=== PATIENT | male | born 1965 | race Caucasian/White ===

== ENCOUNTER 2022-02-02 05:28 | Emergency (ER) | payer BC, SELFPAY ==
[2022-02-02] VITALS (8 sets, daily range): BP systolic 122–145; BP diastolic 70–90; PULSE 66–82; RESP 13–20; O2SAT 90–95; BMI 40.9
--- NOTE | 2022-02-02 06:17 | ED.GENADULT ---
HPI - General Adult General Time Seen by Provider: 06:17 <Fletcher Charles MD - Last Filed: 02/12/22 16:04> Date Seen: 02/02/22 <Fletcher Charles MD - Last Filed: 02/12/22 16:04> Chief complaint: Dizziness/Vertigo <Fletcher Charles MD - Last Filed: 02/12/22 16:04> Stated complaint: Dizziness/Light headedness <Fletcher Charles MD - Last Filed: 02/12/22 16:04> Time Seen by Provider: 02/02/22 06:13 <Fletcher Charles MD - Last Filed: 02/12/22 16:04> Source: patient, family and RN notes reviewed <Fletcher Charles MD - Last Filed: 02/12/22 16:04> Mode of arrival: ambulatory <Fletcher Charles MD - Last Filed: 02/12/22 16:04> Limitations: no limitations <Fletcher Charles MD - Last Filed: 02/12/22 16:04> History of Present Illness HPI narrative: 56-year-old male with no known past medical history presents today with episodes of lightheadedness. Yesterday when he was walking he noticed a couple episodes of feeling lightheaded, these lasted a couple minutes and felt better when he sat down and rested. He had a couple episodes this morning as well. No associated headache, vision changes, chest pain, palpitations, or shortness of breath. He took some nausea but no vomiting. In the emergency department when patient is coming from the waiting room he had another episode and he became pale and diaphoretic. He denies recent illness, no smoking. <Flecther Charles MD - Last Filed: 02/12/22 16:04> Related Data Home medications: Previous Rx's Medication Instructions Recorded meclizine 25 mg tablet 25 mg PO QID #20 tabs 02/02/22 <Fletcher Charles MD - Last Filed: 02/12/22 16:04> Allergies/adverse reactions: Allergies Allergy/AdvReac Type Severity Reaction Status Date / Time No Known Drug Allergies Allergy Verified 02/02/22 06:52 <Fletcher Charles MD - Last Filed: 02/12/22 16:04> Review of Systems Status of ROS: Reports: 10 or more systems reviewed and unremarkable except as noted in History and below <Fletcher Charles MD - Last Filed: 02/12/22 16:04> [facility] Medical History: Medical History (Updated 02/02/22 @ 07:56 by Fletcher Charles MD) Carpal tunnel syndrome Closed fracture of toe <Fletcher Charles MD - Last Filed: 02/12/22 16:04> Social History: Social History Smoking Status: Never smoker Do you use any of these nicotine containing products: None Second hand tobacco smoke exposure: No How often do you have a drink containing alcohol: never How often do you have six or more drinks on one occasion: Never AUDIT-C Alcohol total score: 0 Non-prescribed substance use: denies use <Fletcher Charles MD - Last Filed: 02/12/22 16:04> Exam Narrative: Exam Narrative: General: Well-developed and well-nourished, no acute distress Head: Atraumatic and normocephalic Eyes: Pupils are equal reactive, extraocular motions intact, conjunctiva clear ENT: External nose and ears are normal, posterior pharynx without erythema or exudate Neck: No midline cervical tenderness, full spontaneous range of motion the neck, trachea midline, no adenopathy Heart: Regular rate and rhythm no murmurs or thrills Lungs: Clear to auscultation bilaterally without wheezes or crackles Abdomen: Soft, nontender, nondistended with active bowel sounds Musculoskeletal: No tenderness, deformity, or edema Neurologic: Awake, alert, and oriented x3, no gross focal neurologic deficits, cranial nerves intact as tested Psych: Mood and affect are appropriate Skin: No rashes <Fletcher Charles MD - Last Filed: 02/12/22 16:04> Const: Vital Signs, click to edit/add: Vital Signs - 24 hr 02/02/22 06:20 02/02/22 06:30 02/02/22 08:04 Pulse Rate [Pulse Oximeter] 75 Pulse Rate [Right Pulse Oximeter] 82 Pulse Rate [orthos tatic lying Right Pulse Oximeter] 76 Respiratory Rate 16 Blood Pressure [Le ft Upper Arm] 129/77 Blood Pressure [or thostatic lying Le ft Arm] 131/81 145/86 H Blood Pressure [or thostatic standing Left Arm] 137/83 136/90 H Pulse Oximetry 95 Oxygen Delivery Me thod Room Air 02/02/22 06:25 02/02/22 06:30 02/02/22 06:40 Pulse Rate [Pulse Oximeter] 73 69 72 Pulse Rate [Right Pulse Oximeter] Pulse Rate [orthos tatic lying Right Pulse Oximeter] Respiratory Rate 16 18 13 Blood Pressure [Le ft Upper Arm] 131/81 137/83 123/70 Blood Pressure [or thostatic lying Le ft Arm] Blood Pressure [or thostatic standing Left Arm] Pulse Oximetry 91 93 90 Oxygen Delivery Me thod Room Air Room Air Room Air 02/02/22 07:00 Pulse Rate [Pulse Oximeter] 74 Pulse Rate [Right Pulse Oximeter] Pulse Rate [orthos tatic lying Right Pulse Oximeter] Respiratory Rate 20 Blood Pressure [Le ft Upper Arm] 122/72 Blood Pressure [or thostatic lying Le ft Arm] Blood Pressure [or thostatic standing Left Arm] Pulse Oximetry 92 Oxygen Delivery Me thod Room Air <Fletcher Charles MD - Last Filed: 02/12/22 16:04> Vital Signs, click to edit/add: Vital Signs - 24 hr 02/02/22 06:20 02/02/22 06:30 02/02/22 08:04 Pulse Rate [Pulse Oximeter] 75 Pulse Rate [Right Pulse Oximeter] 82 Pulse Rate [orthos tatic lying Right Pulse Oximeter] 76 Respiratory Rate 16 Blood Pressure [Le ft Upper Arm] 129/77 Blood Pressure [or thostatic lying Le ft Arm] 131/81 145/86 H Blood Pressure [or thostatic standing Left Arm] 137/83 136/90 H Pulse Oximetry 95 Oxygen Delivery Me thod Room Air 02/02/22 06:25 02/02/22 06:30 02/02/22 06:40 Pulse Rate [Pulse Oximeter] 73 69 72 Pulse Rate [Right Pulse Oximeter] Pulse Rate [orthos tatic lying Right Pulse Oximeter] Respiratory Rate 16 18 13 Blood Pressure [Le ft Upper Arm] 131/81 137/83 123/70 Blood Pressure [or thostatic lying Le ft Arm] Blood Pressure [or thostatic standing Left Arm] Pulse Oximetry 91 93 90 Oxygen Delivery Me thod Room Air Room Air Room Air 02/02/22 07:00 Pulse Rate [Pulse Oximeter] 74 Pulse Rate [Right Pulse Oximeter] Pulse Rate [orthos tatic lying Right Pulse Oximeter] Respiratory Rate 20 Blood Pressure [Le ft Upper Arm] 122/72 Blood Pressure [or thostatic lying Le ft Arm] Blood Pressure [or thostatic standing Left Arm] Pulse Oximetry 92 Oxygen Delivery Me thod Room Air <Ronald Fernández MD - Last Filed: 02/02/22 09:46> Course Course Hospital Course: Patient seen and examined, prior records reviewed. Differential diagnosis includes but not limited to dehydration, electrolyte disturbance, dysrhythmia, anemia, influenza, COVID. Patient presents with several near syncopal episodes occurring with activity. No associated symptoms with these, did become pale and diaphoretic with 1 of these episodes in the emergency department. EKG is reassuring, labs and x-ray are ordered. <Fletcher Charles MD - Last Filed: 02/12/22 16:04> Vital Signs Vital signs: Initial Vital Signs Temperature Source Temporal Artery Scan 02/02/22 06:20 Pulse Rate 75 02/02/22 06:20 Pulse Rhythm 02/02/22 06:20 Respiratory Rate 16 02/02/22 06:20 Blood Pressure 129/77 02/02/22 06:20 Blood Pressure Mean 94 02/02/22 06:20 Blood Pressure Position Supine 02/02/22 06:20 Pulse Oximetry 95 02/02/22 06:20 Oxygen Delivery Method 02/02/22 06:20 Vital Signs Pulse Rate 75 02/02/22 06:20 Respiratory Rate 16 02/02/22 06:20 Blood Pressure 129/77 02/02/22 06:20 Pulse Oximetry 95 02/02/22 06:20 Oxygen Delivery Method 02/02/22 06:20 Pulse Rate 66 02/02/22 09:00 Respiratory Rate 16 02/02/22 09:00 Blood Pressure 132/83 02/02/22 09:00 Pulse Oximetry 94 02/02/22 09:00 Oxygen Delivery Method 02/02/22 09:00 <Fletcher Charles MD - Last Filed: 02/12/22 16:04> Initial Vital Signs Temperature Source Temporal Artery Scan 02/02/22 06:20 Pulse Rate 75 02/02/22 06:20 Pulse Rhythm 02/02/22 06:20 Respiratory Rate 16 02/02/22 06:20 Blood Pressure 129/77 02/02/22 06:20 Blood Pressure Mean 94 02/02/22 06:20 Blood Pressure Position Supine 02/02/22 06:20 Pulse Oximetry 95 02/02/22 06:20 Oxygen Delivery Method 02/02/22 06:20 Vital Signs Pulse Rate 75 02/02/22 06:20 Respiratory Rate 16 02/02/22 06:20 Blood Pressure 129/77 02/02/22 06:20 Pulse Oximetry 95 02/02/22 06:20 Oxygen Delivery Method 02/02/22 06:20 Pulse Rate 66 02/02/22 09:00 Respiratory Rate 16 02/02/22 09:00 Blood Pressure 132/83 02/02/22 09:00 Pulse Oximetry 94 02/02/22 09:00 Oxygen Delivery Method 02/02/22 09:00 <Ronald Fernández MD - Last Filed: 02/02/22 09:46> Medical Decision Making MDM Narrative Medical decision making narrative: Care for this patient was transferred to pa at the end of Dr. Charles's shift. Lab results had returned with reassuring findings. A repeat troponin test returns again at 0. IA evaluated the patient at approximately 9 40 a.m.. He states that he is feeling normal and has been up to the bathroom without any incident. He is describing some vertigo symptoms related to these episodes. He is not showing any suspicion for cardiac cause for his symptoms but I did recommend a follow-up stress test. He may also use meclizine or Dramamine as needed and directed. At the time of discharge the patient appears safe for outpatient management. The treatment plan is reviewed along with written and verbal return precautions. Reasons to return and the importance of close followup were also reviewed. <Ronald Fernández MD - Last Filed: 02/02/22 09:46> Medical Records Medical records reviewed: Yes I reviewed the patient's medical records <Fletcher Charles MD - Last Filed: 02/12/22 16:04> Lab Data Lab results reviewed: Yes I reviewed the patient's lab results <Fletcher Charles MD - Last Filed: 02/12/22 16:04> Labs: Lab Results 11/28/22 11/28/22 11/28/22 Range/Units 06:30 06:30 06:35 WBC 5.36 (4.50-11.00) K/uL RBC 5.11 (4.30-5.90) m/uL Hgb 16.1 (13.5-17.5) gm/dL Hct 46.8 (37.0-53.0) % MCV 92 (80-100) fL MCH 32 (26-34) pg MCHC 34 (32-36) gm/dL RDW Coeff of Marjorie 12.5 (11.5-15.5) % Plt Count 169 (140-440) K/uL Neut % (Auto) 73.6 H (42.0-72.0) % Lymph % (Auto) 18.3 L (20-44) % [place] % (Auto) 5.2 (0.0-11.0) % Eos % (Auto) 2.1 (0.0-7.0) % Baso % (Auto) 0.6 (0.0-3.0) % Neut # (Auto) 3.90 (1.7-7.0) K/uL Lymph # (Auto) 1.00 (0.90-2.90) K/uL [place] # (Auto) 0.30 (0.00-0.90) K/UL Eos # (Auto) 0.11 (0.00-0.50) K/uL Baso # (Auto) 0.03 (0.00-0.30) K/uL Abs Immat Gran (auto) 0.01 (0.00-0.30) K/uL Imm/Tot Granulo (auto) 0.2 % Sodium 141 (135-149) mmol/L Potassium 4.3 (3.6-5.1) mmol/L Chloride 109 (96-114) mmol/L Carbon Dioxide 26 (20-32) mmol/L BUN 19 (7-30) mg/dL Creatinine 0.5 (0.5-1.5) mg/dL Estimated Creat Clear 170.33 Estimated GFR 120 ml/min Glucose 133 H (60-115) mg/dL Calcium 9.0 (8.4-10.6) mg/dL NT-Pro-B Natriuret Pep 27 (0-125) PG/mL Urine Color (Yellow) Urine Appearance (Clear) Urine pH (5.0-8.5) Ur Specific Butler (1.000-1.030) Urine Protein (Negative) Urine Glucose (UA) (Negative) Urine Ketones (Negative) Urine Blood (Negative) Urine Nitrite (Negative) Urine Bilirubin (Negative) Urine Urobilinogen (0.2-1.0) Ur Leukocyte Esterase (Negative) Urine RBC (0-2) Urine WBC (0-5) Ur Squamous Epith Cells (None-Few) Urine Bacteria (None) SARS-CoV-2 (PCR) Negative SARS-CoV-2 (Negative) Influenza Type A (PCR) Negative PCR FLU A (Negative) Influenza Type B (PCR) Negative PCR FLU B (Negative) RSV (PCR) Negative PCR RSV (Negative) POC Troponin I (0.01-0.04) ng/ml 02/02/22 02/02/22 02/02/22 Range/Units 06:40 07:55 09:00 WBC (4.50-11.00) K/uL RBC (4.30-5.90) m/uL Hgb (13.5-17.5) gm/dL Hct (37.0-53.0) % MCV (80-100) fL MCH (26-34) pg MCHC (32-36) gm/dL RDW Coeff of Marjorie (11.5-15.5) % Plt Count (140-440) K/uL Neut % (Auto) (42.0-72.0) % Lymph % (Auto) (20-44) % [place] % (Auto) (0.0-11.0) % Eos % (Auto) (0.0-7.0) % Baso % (Auto) (0.0-3.0) % Neut # (Auto) (1.7-7.0) K/uL Lymph # (Auto) (0.90-2.90) K/uL [place] # (Auto) (0.00-0.90) K/UL Eos # (Auto) (0.00-0.50) K/uL Baso # (Auto) (0.00-0.30) K/uL Abs Immat Gran (auto) (0.00-0.30) K/uL Imm/Tot Granulo (auto) % Sodium (135-149) mmol/L Potassium (3.6-5.1) mmol/L Chloride (96-114) mmol/L Carbon Dioxide (20-32) mmol/L BUN (7-30) mg/dL Creatinine (0.5-1.5) mg/dL Estimated Creat Clear Estimated GFR ml/min Glucose (60-115) mg/dL Calcium (8.4-10.6) mg/dL NT-Pro-B Natriuret Pep (0-125) PG/mL Urine Color Yellow (Yellow) Urine Appearance Clear (Clear) Urine pH 6.0 (5.0-8.5) Ur Specific [place] >= 1.030 (1.000-1.030) Urine Protein Negative (Negative) Urine Glucose (UA) Negative (Negative) Urine Ketones Negative (Negative) Urine Blood Trace-intact A (Negative) Urine Nitrite Negative (Negative) Urine Bilirubin Negative (Negative) Urine Urobilinogen 0.2 (0.2-1.0) Ur Leukocyte Esterase Negative (Negative) Urine RBC 0-2 (0-2) Urine WBC 0-2 (0-5) Ur Squamous Epith Cells None (None-Few) Urine Bacteria None (None) SARS-CoV-2 (PCR) (Negative) Influenza Type A (PCR) (Negative) Influenza Type B (PCR) (Negative) RSV (PCR) (Negative) POC Troponin I 0.00 L 0.00 L (0.01-0.04) ng/ml <Fletcher Charles MD - Last Filed: 02/12/22 16:04> Lab Results 02/02/22 02/02/22 02/02/22 Range/Units 06:30 06:30 06:35 WBC 5.36 (4.50-11.00) K/uL RBC 5.11 (4.30-5.90) m/uL Hgb 16.1 (13.5-17.5) gm/dL Hct 46.8 (37.0-53.0) % MCV 92 (80-100) fL MCH 32 (26-34) pg MCHC 34 (32-36) gm/dL RDW Coeff of Marjorie 12.5 (11.5-15.5) % Plt Count 169 (140-440) K/uL Neut % (Auto) 73.6 H (42.0-72.0) % Lymph % (Auto) 18.3 L (20-44) % [place] % (Auto) 5.2 (0.0-11.0) % Eos % (Auto) 2.1 (0.0-7.0) % Baso % (Auto) 0.6 (0.0-3.0) % Neut # (Auto) 3.90 (1.7-7.0) K/uL Lymph # (Auto) 1.00 (0.90-2.90) K/uL [place] # (Auto) 0.30 (0.00-0.90) K/UL Eos # (Auto) 0.11 (0.00-0.50) K/uL Baso # (Auto) 0.03 (0.00-0.30) K/uL Abs Immat Gran (auto) 0.01 (0.00-0.30) K/uL Imm/Tot Granulo (auto) 0.2 % Sodium 141 (135-149) mmol/L Potassium 4.3 (3.6-5.1) mmol/L Chloride 109 (96-114) mmol/L Carbon Dioxide 26 (20-32) mmol/L BUN 19 (7-30) mg/dL Creatinine 0.5 (0.5-1.5) mg/dL Estimated Creat Clear 170.33 Estimated GFR 120 ml/min Glucose 133 H (60-115) mg/dL Calcium 9.0 (8.4-10.6) mg/dL NT-Pro-B Natriuret Pep 27 (0-125) PG/mL Urine Color (Yellow) Urine Appearance (Clear) Urine pH (5.0-8.5) Ur Specific [place] (1.000-1.030) Urine Protein (Negative) Urine Glucose (UA) (Negative) Urine Ketones (Negative) Urine Blood (Negative) Urine Nitrite (Negative) Urine Bilirubin (Negative) Urine Urobilinogen (0.2-1.0) Ur Leukocyte Esterase (Negative) Urine RBC (0-2) Urine WBC (0-5) Ur Squamous Epith Cells (None-Few) Urine Bacteria (None) SARS-CoV-2 (PCR) Negative SARS-CoV-2 (Negative) Influenza Type A (PCR) Negative PCR FLU A (Negative) Influenza Type B (PCR) Negative PCR FLU B (Negative) RSV (PCR) Negative PCR RSV (Negative) POC Troponin I (0.01-0.04) ng/ml 02/02/22 02/02/22 02/02/22 Range/Units 06:40 07:55 09:00 WBC (4.50-11.00) K/uL RBC (4.30-5.90) m/uL Hgb (13.5-17.5) gm/dL Hct (37.0-53.0) % MCV (80-100) fL MCH (26-34) pg MCHC (32-36) gm/dL RDW Coeff of Marjorie (11.5-15.5) % Plt Count (140-440) K/uL Neut % (Auto) (42.0-72.0) % Lymph % (Auto) (20-44) % [place] % (Auto) (0.0-11.0) % Eos % (Auto) (0.0-7.0) % Baso % (Auto) (0.0-3.0) % Neut # (Auto) (1.7-7.0) K/uL Lymph # (Auto) (0.90-2.90) K/uL [place] # (Auto) (0.00-0.90) K/UL Eos # (Auto) (0.00-0.50) K/uL Baso # (Auto) (0.00-0.30) K/uL Abs Immat Gran (auto) (0.00-0.30) K/uL Imm/Tot Granulo (auto) % Sodium (135-149) mmol/L Potassium (3.6-5.1) mmol/L Chloride (96-114) mmol/L Carbon Dioxide (20-32) mmol/L BUN (7-30) mg/dL Creatinine (0.5-1.5) mg/dL Estimated Creat Clear Estimated GFR ml/min Glucose (60-115) mg/dL Calcium (8.4-10.6) mg/dL NT-Pro-B Natriuret Pep (0-125) PG/mL Urine Color Yellow (Yellow) Urine Appearance Clear (Clear) Urine pH 6.0 (5.0-8.5) Ur Specific [place] >= 1.030 (1.000-1.030) Urine Protein Negative (Negative) Urine Glucose (UA) Negative (Negative) Urine Ketones Negative (Negative) Urine Blood Trace-intact A (Negative) Urine Nitrite Negative (Negative) Urine Bilirubin Negative (Negative) Urine Urobilinogen 0.2 (0.2-1.0) Ur Leukocyte Esterase Negative (Negative) Urine RBC 0-2 (0-2) Urine WBC 0-2 (0-5) Ur Squamous Epith Cells None (None-Few) Urine Bacteria None (None) SARS-CoV-2 (PCR) (Negative) Influenza Type A (PCR) (Negative) Influenza Type B (PCR) (Negative) RSV (PCR) (Negative) POC Troponin I 0.00 L 0.00 L (0.01-0.04) ng/ml <Ronald Fernández MD - Last Filed: 02/02/22 09:46> ECG Data Attestation: I personally reviewed and interpreted this ECG as follows: <Fletcher Charles MD - Last Filed: 02/12/22 16:04> Prior ECG tracings: not available for review <Fletcher Charles MD - Last Filed: 02/12/22 16:04> Interpretation: Performed at 6:15 a.m. demonstrates sinus rhythm with left ventricular hypertrophy, rate 70, no acute ST elevations or depressions, normal axis, normal intervals, QTC 432, ID [id number]. No prior for comparison. <Fletcher Charles MD - Last Filed: 02/12/22 16:04> Discharge Plan Discharge Clinical Impression: Near syncope <Fletcher Charles MD - Last Filed: 02/12/22 16:04> Patient Disposition: Home, Self-Care <Fletcher Charles MD - Last Filed: 02/12/22 16:04> Condition: Stable <Fletcher Charles MD - Last Filed: 02/12/22 16:04> Instructions: Near Syncope (ED) <Fletcher Charles MD - Last Filed: 02/12/22 16:04> Additional Instructions: Make sure your getting plenty of fluids and rest. Follow-up with your primary care doctor to discuss further testing. <Fletcher Charles MD - Last Filed: 02/12/22 16:04> Activity Level: No strenuous activity <Fletcher Charles MD - Last Filed: 02/12/22 16:04> No strenuous activity <Ronald Fernández MD - Last Filed: 02/02/22 09:46> Discharge Diet: Regular <Fletcher Charles MD - Last Filed: 02/12/22 16:04> Regular <Ronald Fernández MD - Last Filed: 02/02/22 09:46> Prescriptions: New meclizine 25 mg tablet 25 mg PO QID Qty: 20 0RF <Fletcher Charles MD - Last Filed: 02/12/22 16:04> Follow Up/Referrals: Provider,Not a Local [Primary Care Provider] - <Fletcher Charles MD - Last Filed: 02/12/22 16:04> Stand Alone Forms: MyHealth Info Instructions <Fletcher Charles MD - Last Filed: 02/12/22 16:04>
--- NOTE | 2022-02-02 06:26 | CRLHL7_ITS ---
For Patients: As a result of the Century Cures Act, medical imaging exams and procedure reports are released immediately into your electronic medical record. You may view this report before your referring provider. If you have questions, please contact your health care provider. INDICATION: Near-syncope. TECHNIQUE: Chest 1 views. COMPARISON: None. FINDINGS: Cardiovasculature and mediastinum: Heart size and vasculature are normal in caliber and appearance. Lungs and pleural spaces: Lungs are clear. No sign of infiltrate or mass. No sign of pleural effusion. No pneumothorax. Bones and soft tissues: No significant findings. IMPRESSION: No acute or significant findings. Dictated by Paxton Turner MD @ 02/02/2022 7:27:57 AM (Electronically Signed)
[2022-02-02 07:00] LABS: Basophils Absolute Auto 0.03 K/uL (0.00-0.30); Basophils Percent Auto 0.6 % (0.0-3.0); Eosinophils Absolute Auto 0.11 K/uL (0.00-0.50); Eosinophils Percent Auto 2.1 % (0.0-7.0); Hematocrit 46.8 % (37.0-53.0); Hemoglobin* 16.1 gm/dL (13.5-17.5); Immature Granulocytes Abs Auto 0.01 K/uL (0.00-0.30); Immature Granulocytes Pct Auto 0.2 %; Lymphocytes Percent Auto 18.3 % (20-44); Mean Corpuscular HGB Conc 34 gm/dL (32-36); Mean Corpuscular Hemoglobin 32 pg (26-34); Mean Corpuscular Volume 92 fL (80-100); Monocytes Percent Auto 5.2 % (0.0-11.0); Neutrophils Percent Auto 73.6 % (42.0-72.0); Platelet Count* 169 K/uL (140-440); RDW Coefficient of Variation % 12.5 % (11.5-15.5); Red Blood Count 5.11 m/uL (4.30-5.90); White Blood Count* 5.36 K/uL (4.50-11.00)
[2022-02-02 07:10] LABS: Slide Review Reflex No
[2022-02-02 07:24] LABS: Chloride* 109 mmol/L (96-114); Potassium* 4.3 mmol/L (3.6-5.1); Sodium* 141 mmol/L (135-149)
[2022-02-02 07:27] LABS: Blood Urea Nitrogen* 19 mg/dL (7-30); Carbon Dioxide* 26 mmol/L (20-32); Creatinine* 0.5 mg/dL (0.5-1.5); Est. Creatinine Clearance* 170.33; Estimated Glomerular Filt Rate 120 ml/min; Glucose* 133 mg/dL (60-115)
[2022-02-02 07:29] LABS: PCR FLU A Negative PCR FLU A (Negative); PCR FLU B Negative PCR FLU B (Negative); PCR RSV Negative PCR RSV (Negative)
[2022-02-02 07:33] LABS: SARS PCR* Negative SARS-CoV-2 (Negative)
[2022-02-02 07:36] LABS: NT Pro B Type NatriureticPept* 27 PG/mL (0-125)
[2022-02-02] MEDS: 0.9 % SODIUM CHLORIDE 1000 ml 1,000 ML IV (07:48)
--- NOTE | 2022-02-02 07:52 | ED.NURSE ---
up to the bathroom to void and collect a urine sample. patient denies feeling dizzy now.
[2022-02-02 08:03] LABS: Appearance Urine Clear (Clear); Bilirubin Urine Negative (Negative); Blood Urine Trace-intact (Negative); Color Urine Yellow (Yellow); Glucose Urine Negative (Negative); Ketones Urine Negative (Negative); Leukocyte Esterase Urine Negative (Negative); Nitrite Urine Negative (Negative); Protein Urine Negative (Negative); Specific Gravity Urine >= 1.030 (1.000-1.030); Urobilinogen Urine 0.2 (0.2-1.0)
[2022-02-02 08:18] LABS: RBC Urine 0-2 (0-2); WBC Urine 0-2 (0-5)
== END 2022-02-02 10:08 | disposition home or self-care (01) ==
PROVIDERS: Emergency Provider Family Medicine
DX: R55 Syncope and collapse (principal)
CPT/HCPCS: 36415; 71045; 80048; 81001; 83880; 85025; 87502; 87634; 87635; 93005; 99284; 99285; J7030

== ENCOUNTER 2023-04-15 07:06 | Day surgery (SDC) | payer BC, SELFPAY ==
[2023-04-15] VITALS (13 sets, daily range): BP systolic 95–132; BP diastolic 61–96; PULSE 82–111; RESP 16–20; TEMP 36.2–36.8; O2SAT 91–99; BMI 47.4
[2023-04-15] MEDS: SODIUM CHLORIDE 0.9 % (FLUSH) 10 ML SYRINGE IVF (07:25)
[2023-04-15] MEDS: LACTATED RINGERS 1000 ML 1,000 ML 100 ML IV (07:25)
[2023-04-15] MEDS: CEFAZOLIN 1 GM inj 3 GM IVP (08:51)
[2023-04-15] MEDS: BUPIVACAINE 0.25% 30 ML INJECTION (09:08)
--- NOTE | 2023-04-15 09:43 | W.ANESCHARGE ---
Anesthesia Charges Start Date/Time Anesthesia Start Date: 04/15/23 Anesthesia Start Time: 08:40 Stop Date/Time Anesthesia Stop Date: 04/15/23 Anesthesia Stop Time: 09:42
--- NOTE | 2023-04-15 09:44 | PM.GSPRC ---
Operative Note Date of procedure: 04/15/23 Pre-op diagnosis: Right thigh lipoma, 10 cm Post-op diagnosis: Same Type of Procedure: Excision right thigh lipoma, 6 x 10 cm Indications: The patient is a 57-year-old male who was found to have a right thigh mass. This appeared to be a lipoma, however it was 10 cm in maximal dimension, because of its size I recommended excision. He agreed to proceed after discussion of risks and benefits. Procedure Description: After discussing the risks and benefits of the procedure, the patient signed informed consent.? The operative site was marked and the patient was brought to the operating room and placed on the operating table in supine position.? Care was taken to pad the patient's pressure points.?? The patient was then intubated by anesthesia.?? The patient was placed in frog-leg position again with care to pad pressure points. The operative site was then prepped and draped in the usual sterile fashion.? A time-out was then performed. Incision was made overlying the mass, at the inferior aspect attempting to avoid the groin crease. Dissection was taken down using cautery until the mass was encountered. This was easily dissected free from the surrounding subcutaneous tissue. It was tethered somewhat to the skin post anteriorly, however this was divided. A small bleeding vessel was oversewn with 3-0 Vicryl. The specimen was sent to pathology. The cavity edges were slightly oozy, therefore Pratibha was placed . Hemostasis appeared excellent at the end of the case. The wound was then closed with 3-0 Vicryl dermal and 4-0 Monocryl running subcuticular suture. Glue was applied. A pressure dressing was applied given the large subcutaneous space. The patient was then woken and transported to the recovery area in stable condition. ? The patient tolerated the procedure well. Findings: 10 x 6 cm fatty mass consistent with lipoma. Anesthesia: GETA Surgeon: Karne Mauricio MD Estimated blood loss (mL): 10 Specimen: Other Additional Specimen Information: 1. Right thigh mass Condition: stable Disposition: PACU
== END 2023-04-15 11:47 | disposition home or self-care (01) ==
PROVIDERS: Visit Provider Surgery
PROC: (CPT 27337; principal; 2023-04-15 08:45)
DX: D17.23 Benign lipomatous neoplasm of skin and subcutaneous tissue of right leg (principal)
CPT/HCPCS: 27337; 00400; 88304; J0665; J0690; J1100; J1885; J2250; J2405; J2704; J3010; J3490; J7120

== ENCOUNTER 2024-08-01 07:04 | Outpatient (CLI) | payer BC, SELFPAY | END 2024-08-01 07:05 | disposition home or self-care (01) | LOC: INJ CL 07:05 | PROVIDERS: Visit Provider Family Medicine | DX: M16.11 Unilateral primary osteoarthritis, right hip (principal); M25.551 Pain in right hip | CPT/HCPCS: 20610; 77002; J0702; Q9966 ==

== ENCOUNTER 2024-08-02 17:30 | Outpatient (CLI) | payer BC, SELFPAY | END 2024-08-02 17:31 | disposition home or self-care (01) | LOC: NFLDREF 08-08 07:42 | PROVIDERS: Visit Provider Nurse Practitioner Family | DX: R35.0 Frequency of micturition (principal); R10.2 Pelvic and perineal pain; R82.90 Unspecified abnormal findings in urine | CPT/HCPCS: 87086 ==

== ENCOUNTER 2024-08-06 11:22 | Outpatient (CLI) | payer BC, SELFPAY | END 2024-08-06 11:23 | disposition home or self-care (01) | PROVIDERS: Visit Provider Family Medicine | DX: R10.32 Left lower quadrant pain (principal); Z13.6 Encounter for screening for cardiovascular disorders; Z12.5 Encounter for screening for malignant neoplasm of prostate | CPT/HCPCS: 80061; G0103 ==

== ENCOUNTER 2024-09-01 07:06 | Outpatient (CLI) | payer BC, SELFPAY ==
--- NOTE | 2024-09-01 08:00 | CRLHL7_ITS ---
For Patients: As a result of the Century Cures Act, medical imaging exams and procedure reports are released immediately into your electronic medical record. You may view this report before your referring provider. If you have questions, please contact your health care provider. INDICATION: Hematuria. TECHNIQUE: CT abdomen and pelvis urogram without and with 140 cc Isovue 370 intravenous contrast. Contrast images were obtained in the nephrographic and delayed phases. COMPARISON: None. FINDINGS: KIDNEYS: Left renal stone is present in the lower pole which measures 5 millimeters. Additional punctate stone midportion left kidney. No right renal stones. No ureteral stones. The kidneys are normal in caliber and demonstrate normal uptake and excretion of IV contrast. No solid masses. Incidental water attenuation cyst upper pole right kidney measures 1.7 cm. The renal collecting systems and ureters are symmetrical, normal in caliber, and without evidence of mass or filling defect. URINARY BLADDER: There is a punctate 1 millimeter stone at the right UVJ. The prostate is enlarged with a lobular contour. Prostate calcifications are present. The bladder is otherwise unremarkable. OTHER: Chronic deformity of the L2 vertebral body. Multilevel discogenic spurring. No acute compression fracture. Scarring in both lung bases. Sub cm simple cyst in the liver is again noted. Mild hepatic steatosis. Spleen is unchanged. Normal gallbladder. Pancreatic parenchyma is unchanged. No adrenal nodule. No adenopathy. Sigmoid diverticulosis. No diverticulitis. No bowel obstruction or free air. Normal appendix. IMPRESSION: 1. Nonobstructing 1 millimeter stone at the right UVJ. 2. Nonobstructing left renal stones. 3. Incidental simple right renal cyst. 4. Chronic sigmoid diverticulosis. Please note that all CT scans at this facility use dose modulation, iterative reconstruction, and/or weight-based dosing when appropriate to reduce radiation dose to as low as reasonably achievable. Dictated by Mack Mena MD @ 09/01/2024 11:33:10 AM (Electronically Signed)
--- OUTSIDE RECORDS SUMMARY | 2024-09-01 08:31 | XMS_ITS | Clinical Summary ---
Author Organization [employer] [facility] [employer] [facility] Address [address] [place] [id number] Care Team Providers Care Agricultural Services Director Name Role Phone Unavailable Primary Care Provider Unavailabl e Allergies No known active allergies Medications CPAPIndications: KARLA (obstructive sleep apnea) CPAP machine for home use at pressure 17cmw, CPAP mask- mask of choice, fit to comfort one per 3 months 1 Each 4 Active durable medical equipment (DME)Indications :Closed fracture of distal end of right radius, unspecified fracture morphology, initial encounter [employer] wto univ, xl, rt 4 Active Active Problems Problem Noted Date Diagnosed Date KARLA 04/07/2023 AHI- 74 04/13/2023 Overview (09/20/2023): cpap Hip pain, right 03/23/2023 Overview (08/02/2024): Hip osteoarthritis. July 2024: Dr. Obrien did Fluoro guided right hip joint cortisone injection to right hip. Lipoma of right lower extremity 03/23/2023 Microscopic hematuria 10/05/2017 Routine adult health maintenance 08/20/2017 Overview (08/20/2017): Colonoscopy 08/2017 diverticulosis, repeat in 10 years Erectile dysfunction 07/15/2017 Morbid obesity with BMI of 40.0-44.9, adult 07/06 Resolved Problems Problem Noted Date Diagnosed Date Resolved Date Routine general medical exam ination at a health care facility 07/15/2017 Overview (06/03/2007): Lipids - 11/15/03 cholesterol 174 Colon - none found Thyroid- 07/21/99 TSH 1.5 PSA - 11/15/03 1.61 Hep B-none found Tetanus-? Diabetic-no Encounters Date Type Department Care Team Description 08/02/2024 Telephone [facility] [address] [place] [address] Chilango Obrien MD Concerns 08/02/2024 Nurse Triage [facility] [address] [place] [address] Chilango Obrien MD Post-op Pain/problem 08/01/2024 7:40 AM CDT Office Visit [facility] at [address] [phone] Chilango Obrien MD Procedure (Right hip intra-articular injection with Fluoro) 07/20/2024 1:45 PM CDT Ancillary Procedure [facility] [address] [place] [address] 07/20/2024 12:35 PM CDT Office Visit [facility] [address] [place] [address] Jose Ramon Khalil MD Consult (Right hip pain and left knee pain/) 07/20/2024 Travel from Last 3 Months Immunizations Immunization Administration Dates Next Due Td (Age >=7 Years) 10/12/1998 Tdap 08/20/2008 Family History Medical History Relation Name Comments Hypertension Father Cancer-breast Mother Anesthesia Problem No Family History Cancer-colon No Family History Cancer-prostate No Family History Heart Disease No Family History Relation Name Status Comments Father Alive Mother Alive Social History Tobacco Use Types Packs/Day Years Used Date Smoking Tobacco: Never Smokeless Tobacco: Never Tobacco Cessation:Counseling Given: No Alcohol Use Standard Drinks/Week Comments Yes 3 (1 standard drink = 0.6 oz pur e alcohol) Occasional PHQ-2 Answer Date Recorded PHQ-2 TOTAL SCORE 0 11/11/2022 Social Connections Answer Date Recorded Do you often feel lonely or isolated from those around you? 0 07/20/2024 Alcohol Use Answer Date Recorded How often do you have a drink containing alcohol ? 3 11/11/2022 How many drinks containing a lcohol do you have on a typical day when you are drinking? 0 11/11/2022 How often do you have five or more drinks on one occasion? 0 11/11/2022 Financial Resource Strain Answer Date R ecorded Difficulty of Paying Living Expenses 3 07/20/2024 Difficulty of Paying Living Expenses Not on file 07/20/2024 Food Insecurity Answer Date Recorded Do you worry your food will run out before you are able to buy more? 1 07/20/2024 Transportation Needs Answer Date Record ed Does lack of transportation keep you from medica l appointments? 1 07/20/2024 Does lack of transportation keep you from work, meetings or getting things that you need? 1 07/20/2024 Housing Stability Answer Date Recorded What is your housing situation today? 1 07/20/2024 Utilities Answer Date Recorded Do you have trouble paying f or utilities (for example, heat, electricity, water, phone)? 1 07/20/2024 Sex and Gender Information Value Date Recorded Sex Assigned at Not on file Legal Sex Male 6:29 AM GAMES [employer] Gender Identity Not on file Sexual Orientation Not on file Obstetrics History Last Filed Vital Signs Vital Sign Reading Time Taken Comments Blood Pressure 140/88 07/20/2024 12:37 PM CDT Pulse 72 07/20/2024 12:37 PM CDT Temperature 37.1 C (98.8 F) 09/23/2023 3:45 PM CDT Respiratory Rate 20 09/23/2023 3:45 PM CDT Oxygen Saturation 96% 07/20/2024 12:37 PM CDT Inhaled Oxygen Concentration - - Weight 136.1 kg (300 lb) 07/20/2024 12:37 PM CDT Height 175.3 cm (5' 9) 09/20/2023 12:55 PM CDT Body Mass Index 44.3 09/20/2023 12:55 PM CDT Plan of Treatment Upcoming Encounters Date Type Department Care Team (Late st Contact Info) Description 09/12/2024 7:00 AM CDT Office Visit [facility] [address] [place] [address] Jose Ramon Khalil MD [address] [place] [address] Health Maintenance Due Date Last Done Comments Hepatitis B series for 19+ ( 1 of 3 - 19+ 3-dose series) 1984 Pneumococcal series for age 50+ (1 of 1 - PCV) 11/25/2015 Zoster (shingles) series for age 50+ (1 of 2) 11/25/2015 Tetanus booster 08/20/2018 08/20/2008, 10/12/1998 Lipids for age 45-75 07/20/2022 07/20/2017, 07/12/19 08 COVID-19 vaccine series (2023- season) 2023 Depression screening for age 12+ 11/12/2023 11/12/19, 07/15/2017 BMI (ht and wt on same day) for age 18+ 09/19/2024 09/20/2023, 07/06/2023, 04/13/2023, Additional history exists Influenza Vaccine (Season Ended) 2024 Colonoscopy through age 75 08/21/202708/20, 08/20/2017, 08/20/2017 HIV for age 15-65 Completed 07/12/2007 Hepatitis C screening for ag e 18-79 Completed 07/12/2007 Tdap Completed 08/20/2008 Procedures Procedure Name Priority Date/Time Associated Diagnosis Comments IR INJ OR ASP MAJOR JT OR BURSA Routine 08/01/2024 12:00 AM CDT Arthritis of right hip XR KNEE WB 2 VIEWS BILATERAL AND 1 VIEW LEFT Routine 07/20/2024 1:41 PM CDT Acute pain of left knee COLONOSCOPY 08/20/2017 9:33 AM CDT LIPID PANEL W REFLEX MEASURED LDL Routine 07/20/2017 8:28 AM CDT Lipid screening ANTI HIV 1/2 Routine 07/12/2007 9:37 AM CDT Screening Exam Venereal Disease ANTI HCV Routine 07/12/2007 9:37 AM CDT Screening Exam Venereal Disease from Last 3 Months or Most Recently Relevant to Health Maintenance Results * IR INJ OR ASP MAJOR JT OR BURSA (08/01/2024 12:00 AM CDT) Anatomical Region Laterality Modality Other Jose Ramon Khalil MD IR Final Res ult * XR KNEE WB 2 VIEWS BILATERAL AND 1 VIEW LEFT (07/20/2024 1:41 PM CDT) Anatomical Region Laterality Modality KNEES, KNEE L Computed Radiogr aphy 07/21/2024 3:46 PM CDT Impressions 07/21/2024 3:46 PM CDT Mild patellofemoral spurring bilaterally. No joint effusion. Medial compartment narrowing left knee. No fracture. Dictated by Mack Mena MD @ 07/21/2024 3:46:07 PM (Electronically Signed) Narrative 07/21/2024 3:46 PM CDT For Patients: As a result of the Cures Act, medical imaging exams and procedure reports are released immediately into your electronic medical record. You may view this report before your referring provider. If you have questions, please contact your health care provider. Indication: Acute pain of left knee Technique: XR KNEE WB 2 VIEWS BILATERAL AND 1 VIEW LEFT Procedure Note Mack Mena MD - 07/21/2024 For Patients: As a result of the Cures Act, medical imagingexams and procedure reports are released immediately into your electronicmedical record. You may view this report before your referring provider.If you have questions, please contact your health care provider. Indication: Acute pain of left knee Technique: XR KNEE WB 2 VIEWS BILATERAL AND 1 VIEW LEFT IMPRESSION: Mild patellofemoral spurring bilaterally. No joint effusion. Medialcompartment narrowing left knee. No fracture. Dictated by Mack Mena MD @ 07/21/2024 3:46:07 PM (Electronically Signed) Jose Ramon Khalil MD GENERAL IMAGING Final Res ult * COLONOSCOPY (08/20/2017 9:33 AM CDT) 08/20/2017 9:33 AM CDT Narrative Transcriptions Melo Estrada MD - 08/20/2017 10:36 AM CDT Patient Name: Dee Dee [address] Procedure Date: 08/20/2017 Gender: Male Date of : 1965 Admit Type: Outpatient Procedure: Colonoscopy Proceduralist: Melo Estrada MD , Vane Valdivia (Nurse) Indications/Pre-Op Diagnosis: Screening for colorectal malignant neoplasm, This is the patient's first colonoscopy Medications: Fentanyl 100 micrograms IV, Midazolam 2 mgIV, The level of sedation administered wasmoderate Procedure Description: The patient had risks, benefits and alternatives explained to andgave informed consent. The patient had a stable cardiopulmonary status and judged an adequate candidate for conscious sedation. The [id number] was passed through the anus and advanced tothe cecum, identified by appendiceal orifice and ileocecal valve. The colonoscopy was performed without difficulty. The patient toleratedthe procedure well. The quality of the bowel preparation was good. The ileocecal valve, appendiceal orifice, and rectum were photographed. Complications: No immediate complications. Estimated Blood Loss & Specimen: Estimated blood loss: none. Specimen collected - None Findings: The perianal and digital rectal examinations were normal. Multiple small and large-mouthed diverticula were found in thesigmoid colon and descending colon. The exam was otherwise without abnormality on direct and retroflexion views. Impressions/Post-Op Diagnosis: - Moderate diverticulosis in the sigmoid colon and in the descending colon. - The examination was otherwise normal on direct and retroflexionviews. - No specimens collected. Recommendation: - Patient has a contact number available for emergencies. The signsand symptoms of potential delayed complications were discussed with the patient. Return to normal activities tomorrow. Written discharge instructions were provided to the patient. - Resume previous diet. - Continue present medications. - Repeat colonoscopy in 10 years for screening purposes. Moderate Sedation: Moderate (conscious) sedation was administered by the endoscopy nurse and supervised by the endoscopist. The following parameters were monitored: oxygen saturation, heart rate, respiratory rate, blood pressure, adequacy of pulmonary ventilation and reponse to care. [facility] and nursing notes for moderate sedation details. Total physician intraservice time was 15 minutes. Melo Estrada MD 08/20/2017 10:36:26 AM This report has been signed electronically. Note Initiated On: 08/20/2017 9:33 AM Procedure Code(s): --- Professional --- 83689, Colonoscopy, flexible; diagnostic, including collection of specimen(s) bybrushing or washing, when performed (separateprocedure) Diagnosis Code(s): --- Professional --- Z12.11, Encounter for screening formalignant neoplasm of colon K57.30, Diverticulosis of large intestine without perforation or abscess withoutbleeding CPT copyright 2017 [employer]. All rights reserved. The codes documented in this report are preliminary and upon drinking water technician reviewmay be revised to meet current compliance requirements. Scope In: 10:10:16 AM Scope Withdrawal Time 0 hours 9 minutes 34 seconds Scope Out: 10:23:27 AM us Melo Estrada MD PROCEDURE ORD Final Res ult * LIPID PANEL W REFLEX MEASURED LDL (07/20/2017 8:28 AM CDT) CHOLESTEROL,TOTAL 168 100 - 199 mg/dL 07/20/2017 2:10 PM CDT [facility] TRIGLYCERIDES 61 <150 mg/dL 07/20/2017 2:10 PM CDT [facility] HDL CHOLESTEROL 47 >40 mg/dL 8 2:[address] [facility] NON-HDL CHOLESTEROL 121 <145 mg/dl 07/20/2017 2:[address] [facility] CHOL/HDL RATIO 3.57 <4.50 07/20/2017 2:[address] [facility] LDL CHOLESTEROL 109 <=130 mg/dL 07/20/2017 2:[address] [facility] PROVIDER ORDERED STATUS RANDOM 07/20/2017 2:[address] [facility] Blood BLOOD SPECIMEN / Unknown Venipuncture / Unknown 07/20/2017 8:28 AM CDT 07/20/2017 8:28 AM CDT us Saad Scott MD CHEMISTRY Final Result [facility] [address] [place] [address], [place] * ANTI HCV (07/12/2007 9:37 AM CDT) [facility] ANTI HCV Non-reacti [facility] Blood specimen (specimen) BLOOD SPECIMEN / Unknown 07/12/2007 9:37 AM CDT 07/12/2007 9:28 AM CDT us Saad Scott MD SEND OUTS Final Result [facility] [place]NAL ZIP [id number] [place] [address] * ANTI HIV 1/2 (07/12/2007 9:37 AM CDT) [facility] (specimen[facility] BLOOD SPECIMEN / Unknown 07/12/2007 9:37 AM CDT 07/12/2007 9:28 AM CDT us Saad Scott MD SEND OUTS Final Result [facility] INTERNAL ZIP [address] [address] from Last 3 Months or Most Recently Relevant to Health Maintenance Insurance [facility] [place] [address]
== END 2024-09-01 07:07 | disposition home or self-care (01) ==
LOC: CT 07:07
PROVIDERS: Visit Provider Family Medicine
DX: R31.9 Hematuria, unspecified (principal); N21.0 Calculus in bladder; N20.0 Calculus of kidney; N28.1 Cyst of kidney, acquired; K57.30 Diverticulosis of large intestine without perforation or abscess without bleeding
CPT/HCPCS: 74178; Q9967

== ENCOUNTER 2024-09-18 14:30 | Outpatient (RCR) | payer BC, SELFPAY | END 2024-10-05 10:50 | disposition home or self-care (01) | PROVIDERS: Visit Provider Family Medicine | DX: M25.551 Pain in right hip (principal); M16.11 Unilateral primary osteoarthritis, right hip; M25.562 Pain in left knee; Z51.89 Encounter for other specified aftercare | CPT/HCPCS: 97110; 97112; 97161 ==